=== PATIENT | male | born 1955 | race Caucasian/White ===

== ENCOUNTER 2017-10-03 01:05 | Emergency (ER) | payer OTHER ==
[~2017-10-03] VITALS: Ht 182.9 cm; Wt 129.3 kg
[~2017-10-03 01:05] MED LIST: AMLO10TA1 PO; ASPI81CT89 PO; ATEN100T6 PO; BUS5 PO; ENAL5TAB20 PO; GLU500 PO; GLYB5TAB13 PO
--- NOTE | 2017-10-03 01:05 | NUR ---
BIBA TO ER BED 3
[2017-10-03 01:10] VITALS: BP 153/89
--- NOTE | 2017-10-03 01:17 | NUR ---
Patient being evaluated by physician at bedside.
--- NOTE | 2017-10-03 01:29 | NUR ---
61Y/M BIBA C/O NOSEBLEED. PMH DM, HTN. ALLERGY TO IODINE. PER EMS PT HAS HAD NOSEBLEED SINCE MIDNIGHT AND WAS UNABLE TO STOP IT. EMS REPORTS NO ACTIVE BLEEDING IN ROUTE, NO ACTIVE BLEEDING NOTED ON ARRIVAL TO ED. PT APPEARS TO BE IN NO APPARENT DISTRESS AT THIS TIME. AA&O X4. PT STATES HE WAS READING/WRITTING FOR A FEW HOURS AND STOOD UP SUDDENLY TO GET READY TO GO TO BED WHEN HIS NOSE STARTED TO BLEED. PT STATES HE TAKES A DAILY BABY ASPIRIN. 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 PT HAS BL LOWER LEG EDEMA WITH DISCOLORATION TO LEFT LOWER LEG, SKIN IS INTACT, SKIN IS PURPLE DISCOLORATION. PT IN BED SIDE RAILS UP X1, ER MD NOTIFIED OF PT STATUS, COMFORT NEEDS MET AT THIS TIME.
[2017-10-03] MEDS ORDERED: LORazepam 1 MG TAB PO ONE (01:50)
[2017-10-03 02:31] VITALS: BP 158/80
--- NOTE | 2017-10-03 02:32 | NUR ---
Isael hensley in [facility] - 10/03/17 at 0233 by CHANI PT D/C TO [facility], PT HAS PHONE AND ABLE TO PAY FOR [facility].
--- NOTE | 2017-10-03 02:33 | NUR ---
Patient discharged with v/s stable. Written and verbal after care instructions given and explained. Patient alert, oriented and verbalized understanding of instructions. Ambulatory with steady gait. All questions addressed prior to discharge. ID band removed. Patient advised to follow up with PMD. Rx of AFRIN NO DRIP NASAL SPAY 0.05%, ATIVAN 1MG given. Patient educated on indication of medication including possible reaction and side effects. Opportunity to ask questions provided and answered. PT D/C TO [facility], PT HAS PHONE AND ABLE TO PAY FOR TAXI.
== END 2017-10-03 02:31 | disposition home or self-care (01) ==
LOC: MED 01:05
DX: R04.0 Epistaxis (principal); I10 Essential (primary) hypertension; E11.9 Type 2 diabetes mellitus without complications; Z79.899 Other long term (current) drug therapy; Z79.82 Long term (current) use of aspirin; Z79.84 Long term (current) use of oral hypoglycemic drugs; Z88.8 Allergy status to other drugs, medicaments and biological substances; Z91.041 Radiographic dye allergy status
CPT/HCPCS: 99283

== ENCOUNTER 2020-01-23 09:06 | Inpatient (IN) | payer OTHER ==
[~2020-01-23] VITALS: Ht 185.4 cm; Wt 130.2 kg
[~2020-01-23 09:06] MED LIST changes: +ASPI-1821 PO; -ASPI81CT89 PO; -ENAL5TAB20 PO; +ENAL5TAB34 PO
[2020-01-23 09:12] VITALS: BP 170/79
--- NOTE | 2020-01-23 09:23 | NUR ---
PT AMBULATED TO ER BED 02
--- NOTE | 2020-01-23 09:30 | NUR ---
dr arellano evaluating pt.
[2020-01-23] MEDS ORDERED: VANCOMYCIN 1,000 MG in DEXTROSE 5% 250 ML IV ONE (09:35)
[2020-01-23] MEDS ORDERED: NACL 0.9% 4,000 ML IV ONE (09:35)
--- NOTE | 2020-01-23 09:48 | NUR ---
xray at bedside.
--- NOTE | 2020-01-23 09:48 | NUR ---
labs at bedside.
--- NOTE | 2020-01-23 09:49 | NUR ---
adelina at bedside.
--- NOTE | 2020-01-23 09:50 | NUR ---
c/o chronic wound left lower leg & pain x 3 weeks. BLOOD SUGAR 305 AT THIS TIME.Pt awake ,alert ,afibrile, ambulatory with steady gait. sce ,cbs , noted a prutruding hernia on lower abdomen, left leg positive wound. plus 2 pitting edema. med hx: DM, HTN
[2020-01-23 09:58] LABS: BASOPHILS # (AUTO) 0.1 K/uL (0.00-0.22); BASOPHILS % (AUTO) 0.7 % (0.0-2.0); EOSINOPHILS # (AUTO) 0.2 K/uL (0-0.4); EOSINOPHILS % (AUTO) 2.6 % (0.0-4.0); HEMATOCRIT 44.6 % (36-52); HEMOGLOBIN 14.9 g/dL (12.0-18.0); LYMPHOCYTES % (AUTO) 24.6 % (20.5-51.1); MEAN CORPUSCULAR HEMOGLOBIN 28 pg (27-31); MEAN CORPUSCULAR HGB CONC 33 g/dL (33-37); MEAN CORPUSCULAR VOLUME 84.2 fL (80-94); MONOCYTES # (AUTO) 0.6 K/uL (0.8-1.0); MONOCYTES % (AUTO) 7.5 % (1.7-9.3); NEUTROPHILS # (AUTO) 5.2 K/uL (1.8-7.7); NEUTROPHILS % (AUTO) 64.6 % (42.2-75.2); PLATELET COUNT (AUTO) 254 K/uL (140-450); RED CELL DISTRIBUTION WIDTH 13.8 % (11.6-13.7)
[2020-01-23 10:13] LABS: ALBUMIN 3.4 g/dL (3.4-5.0); ANION GAP 10.2 (8-16); CREATININE 0.8 mg/dL (0.6-1.3); POTASSIUM 4.2 mmol/L (3.5-5.1); TOTAL BILIRUBIN 0.6 mg/dL (0.0-1.0)
[2020-01-23] MEDS ORDERED: INSULIN REGULAR, HUMAN 100 UNIT/ML VIAL IVP ONE (10:15)
--- NOTE | 2020-01-23 10:49 | NUR ---
dr arellano verbal order hold remaining 3 liters of ivf fluids.
[2020-01-23] MEDS ORDERED: MORPHINE SULFATE 4 MG/ML SYR IVP PRN (10:50)
[2020-01-23] MEDS ORDERED: ONDANSETRON 4 MG/2 ML VIAL IVP PRN (10:50)
[2020-01-23] MEDS ORDERED: ACETAMINOPHEN 325 MG TAB PO PRN (10:50)
[2020-01-23] MEDS ORDERED: HYDROcodone/APAP 5/325 MG 1 TAB TAB PO PRN (10:50)
[2020-01-23] MEDS ORDERED: DEXTROSE 50% 50 ML SYR IVP PRN (10:50)
[2020-01-23] MEDS ORDERED: VANCOMYCIN PER PHARMACY MC PRN (10:50)
[2020-01-23] MEDS ORDERED: ALBUTEROL 0.083% 2.5 MG/3 ML NEBU INH PRN (10:50)
[2020-01-23 10:54] LABS: APPEARANCE,URINE CLEAR (CLEAR); BILIRUBIN,URINE NEGATIVE (NEGATIVE); BLOOD, URINE NEGATIVE (NEGATIVE); COLOR,URINE YELLOW (YELLOW); LEUKOCYTE ESTERASE ,URINE NEGATIVE (NEGATIVE); NITRITE, URINE NEGATIVE (NEGATIVE); UGLUCOSE 3+ (NEGATIVE)
--- NOTE | 2020-01-23 11:11 | NUR ---
pt awake on bed ,side rails up no complaint at this time .
--- NOTE | 2020-01-23 11:21 | NUR ---
xray on bedside doin left leg xray.
[2020-01-23 11:23] LABS: RBC,URINE 0-5 /HPF (0-5); WBC,URINE 0-5 /HPF (0-5)
[2020-01-23] MEDS: BLOOD GLUCOSE MONITORING 1 DEV DEV FS SCH ×3 (11:30→20:18)
--- NOTE | 2020-01-23 11:58 | NUR ---
Patient noted to have existing wounds upon arrival to ER. Photos taken of wound and placed in chart. Wound covered with dressing. Physician informed.
--- NOTE | 2020-01-23 12:45 | NUR ---
PATIENT ARRIVE VIA GURNEY, AMBULATED ON STEADY GAIT TO BED. DX LEFT FOOT DM ULCER. PATIENT DENIES PAIN AT THIS TIME. RESPIRATIONS EVEN AND UNLABORED ON ROOM AIR. PT AOX4, UPDATED BOARD. IV SITE INTACT, ASYMPTOMATIC, CURRENTLY INTACT. UPDATED HIM WITH PLAN OF CARE, HE VERBALIZED UNDERSTANDING, MRSA SCREENING DONE. CALL LIGHT WITHIN REACH, WILL CONTINUE TO MONITOR PATIENT.
--- NOTE | 2020-01-23 12:50 | NUR ---
Patient will be admitted to care of dr cartwright. Admited to [facility]. Will go to room 126 B. Belongings list completed. Report to amrita gant.
[2020-01-23 13:00] VITALS: BP 149/59
--- NOTE | 2020-01-23 14:00 | NUR ---
DR MILLS IN TO SEE THE PATIENT. WILL WAIT FOR HIS NEW ORDERS.
[2020-01-23] MEDS ORDERED: cloNIDine 0.1 MG TAB PO PRN (14:10)
[2020-01-23] MEDS: NACL 0.9% 1,000 ML IV SCH (14:25)
[2020-01-23] MEDS: PIPERACILLIN/TAZOBACTAM 3.375 GM in DEXTROSE 5% 50 ML IV SCH ×2 (14:26→20:23)
[2020-01-23 16:00] VITALS: BP 155/80
[2020-01-23] MEDS: VANCOMYCIN 1,000 MG in DEXTROSE 5% 250 ML IV SCH (17:40)
--- NOTE | 2020-01-23 17:40 | NUR ---
DR CROCKER IN TO PUTTING DRESSING ON PATIENT'S LEFT LEG AND FOOT. PATIENT TOLERATED IT. ORDERED MEDICATIONS GIVEN. BLOOD SUGAR 270, COVERAGE GIVEN. PATIENT TOLERATED THEM. NO COMPLAINTS AT THIS TIME. CALL LIGHT WITHIN REACH, WILL CONTINUE TO MONITOR PATIENT.
[2020-01-23] MEDS: INSULIN LISPRO SLIDING SCALE 100 UNITS/ML VIAL SUBQ PRN ×2 (17:46→20:32)
--- NOTE | 2020-01-23 18:55 | NUR ---
PATIENT BACK FROM RADIOLOGY, PT SETTLED BACK IN BED, NO COMPLAINTS AT THIS TIME. WILL ENDORSE TO MANUFACTURING HELPER NURSE.
--- NOTE | 2020-01-23 19:10 | NUR ---
REPORT GIVEN TO LOG BRANDER NURSE AT BEDSIDE FOR CONTINUITY OF CARE. PATIENT IN STABLE CONDITION.
--- NOTE | 2020-01-23 19:10 | NUR ---
RECIEVED PT AAOX4 , NID , BERABLE PAIN . R FOOT WRAPPED BY ROBERT BINDER . IV SITE INTACT AND PATENT . POC DISCUSSED AND VWERBALIZE UNDERSTANDING , WILL CONT. TO MONITOR.
[2020-01-23 20:00] VITALS: BP 150/80
--- NOTE | 2020-01-23 20:07 | NUR ---
RECEIVED PT FROM AM SHIFT. PT IN NO APPARENT RESPIRATORY DISTRESS AT THIS TIME: HR 65, RR 18, CLEAR BREATH SOUNDS, AND SPO2 97% ON ROOM AIR. NO INDICATION FOR HHN PRN TX AT THIS TIME. PT WAS INFORMED TO CALL SUPERVISOR LITHARGE CRANE ENGINEER FOR PRN TX WHEN FEELING SOB. WILL CONTINUE TO MONITOR PT.
[2020-01-23] MEDS ORDERED: PIPERACILLIN/TAZOBACTAM 3.375 GM VIAL IV ONE (20:09)
[2020-01-23] MEDS: busPIRone 5 MG TAB PO SCH (20:23)
[2020-01-23] MEDS: glyBURIDE 5 MG TAB PO SCH (20:23)
--- NOTE | 2020-01-23 23:00 | NUR ---
RESTING ON BED.
[2020-01-24] VITALS: BP 150/70
--- NOTE | 2020-01-24 | NUR ---
NOT IN ACUTE DISTRESS , CALL LIGHT WITHIN REACH.
[2020-01-24] MEDS: NACL 0.9% 1,000 ML IV SCH ×2 (00:09→13:29)
[2020-01-24] MEDS ORDERED: VANCOMYCIN 1,000 MG VIAL ONE (03:41)
[2020-01-24] MEDS: VANCOMYCIN 1,000 MG in DEXTROSE 5% 250 ML IV SCH ×3 (03:50→17:10)
[2020-01-24 04:00] VITALS: BP 110/60
[2020-01-24] MEDS ORDERED: PIPERACILLIN/TAZOBACTAM 3.375 GM VIAL IV ONE (05:05)
[2020-01-24] MEDS: PIPERACILLIN/TAZOBACTAM 3.375 GM in DEXTROSE 5% 50 ML IV SCH ×2 (05:26→13:32)
[2020-01-24] MEDS: BLOOD GLUCOSE MONITORING 1 DEV DEV FS SCH ×3 (05:41→16:42)
--- NOTE | 2020-01-24 06:00 | NUR ---
RESTING ON BED, NO COMPLAIN MADE
[2020-01-24] MEDS: INSULIN LISPRO SLIDING SCALE 100 UNITS/ML VIAL SUBQ PRN ×3 (06:14→17:16)
[2020-01-24 06:27] LABS: BASOPHILS % (AUTO) 0.7 % (0.0-2.0); EOSINOPHILS # (AUTO) 0.3 K/uL (0-0.4); EOSINOPHILS % (AUTO) 4.5 % (0.0-4.0); HEMATOCRIT 42.4 % (36-52); HEMOGLOBIN 14.4 g/dL (12.0-18.0); LYMPHOCYTES # (AUTO) 1.7 K/uL (2.0-11.5); LYMPHOCYTES % (AUTO) 24.3 % (20.5-51.1); MEAN CORPUSCULAR HEMOGLOBIN 28 pg (27-31); MEAN CORPUSCULAR HGB CONC 34 g/dL (33-37); MEAN CORPUSCULAR VOLUME 83.9 fL (80-94); MONOCYTES # (AUTO) 0.6 K/uL (0.8-1.0); MONOCYTES % (AUTO) 8.6 % (1.7-9.3); NEUTROPHILS # (AUTO) 4.4 K/uL (1.8-7.7); NEUTROPHILS % (AUTO) 61.9 % (42.2-75.2); PLATELET COUNT (AUTO) 249 K/uL (140-450); RED BLOOD CELL COUNT(AUTO) 5.06 MIL/uL (4.20-6.10); RED CELL DISTRIBUTION WIDTH 13.4 % (11.6-13.7); WHITE BLOOD COUNT (AUTO) 7.1 K/uL (4.8-10.8)
[2020-01-24 06:54] LABS: MAGNESIUM 1.7 mg/dL (1.8-2.4); PHOSPHORUS 3.1 mg/dL (2.5-4.9)
[2020-01-24 06:58] LABS: ANION GAP 9.1 (8-16); CARBON DIOXIDE 28.8 mmol/L (21-32); CREATININE 0.6 mg/dL (0.6-1.3); POTASSIUM 3.9 mmol/L (3.5-5.1)
[2020-01-24 07:12] LABS: PROTHROMBIN TIME 10.9 secs (10.8-13.4)
--- NOTE | 2020-01-24 07:25 | NUR ---
RECEIVED REPORT FROM ADULT HEALTH CLINICAL NURSE SPECIALIST NURSE AT BEDSIDE FOR CONTINUITY OF CARE. AOX4, PATIENT DENIES PAIN AT THIS TIME. RESPIRATIONS EVEN AND UNLABORED ON ROOM AIR. UPDATED BOARD. IV SITE INTACT, ASYMPTOMATIC, INFUSING IVF WELL. UPDATED HIM WITH PLAN OF CARE, HE VERBALIZED UNDERSTANDING, CALL LIGHT WITHIN REACH, WILL CONTINUE TO MONITOR PATIENT.
[2020-01-24 08:00] VITALS: BP 149/65
[2020-01-24] MEDS: busPIRone 5 MG TAB PO SCH (08:40)
[2020-01-24] MEDS: glyBURIDE 5 MG TAB PO SCH (08:41)
--- NOTE | 2020-01-24 08:41 | NUR ---
ORDERED MEDICATION GIVEN. PATIENT TOLERATED THEM WELL. TENORMIN WITHHELD D/T PT PULSE OF 57. PT HAS NO COMPLAINTS AT THIS TIME. WILL CONTINUE TO MONITOR PATIENT.
--- NOTE | 2020-01-24 08:49 | NUR ---
PATIENT HAS BEEN SCREENED AND CATEGORIZED HIGH NUTRITION RISK. PATIENT WILL BE SEEN WITHIN 1-2 DAYS OF ADMISSION. 01/24/[address]
[2020-01-24] MEDS ORDERED: ENALAPRIL 5 MG TAB PO SCH (09:00)
[2020-01-24] MEDS ORDERED: ASPIRIN 81 MG TAB.CHEW PO SCH (09:00)
[2020-01-24] MEDS ORDERED: amLODIPine 5 MG TAB PO SCH (09:00)
[2020-01-24] MEDS ORDERED: ATENOLOL 50 MG TAB PO SCH (09:00)
[2020-01-24] MEDS ORDERED: ATEN100T6 PO (12:40)
[2020-01-24] MEDS ORDERED: ENAL5TAB34 PO (12:40)
[2020-01-24] MEDS ORDERED: METF1000 PO (12:40)
[2020-01-24] MEDS ORDERED: AMLO10TA1 PO (12:40)
[2020-01-24] MEDS ORDERED: GLYB5TAB13 PO (12:40)
[2020-01-24] MEDS ORDERED: CLIN300C2 PO (12:41)
--- NOTE | 2020-01-24 14:40 | NUR ---
01/24/20 RD INITIAL ASSESSMENT COMPLETED PLEASE REFER TO NUTRITION ASSESSMENT UNDER CARE ACTIVITY FOR ESTIMATED NUTRITIONAL NEEDS. 1. CONTINUE CCHO DIET TOLERATED 2. RECOMMED AWILDA BID 3. RD PROVIDED NUTRITION RECOMMENDATIONS FOR CONSITENT CHO DIET. 4. RD TO FOLLOW-UP 3-5 DAYS, MODERATE RISK NALLELY ODELL, RD
[2020-01-24 16:10] VITALS: BP 158/69
--- NOTE | 2020-01-24 17:05 | NUR ---
CALLED PHARMACY TO INQUIRE ABOUT LAST VANCO DOSE, VANCO TROUGH TO BE DONE, INFORM PHARMACIST OF PATIENT'S DISCHARGE, PER PHARMACIST, PATIENT CAN HAVE LAST DOSE AND BE DISCHARGE HOME, HE WILL CANCEL VANCO TROUGH.
--- NOTE | 2020-01-24 17:16 | NUR ---
INSULIN COVERAGE GIVEN FOR BLOOD SUGAR LEVEL. ORDERED MEDICATION GIVEN. PATIENT TOLERATED THEM WELL. PT HAS NO COMPLAINTS AT THIS TIME. IS AWARE OF DISCHARGE PLAN. WILL CONTINUE TO MONITOR PATIENT.
--- NOTE | 2020-01-24 18:12 | NUR ---
DISCHARGE INSTRUCTION AND EDUCATION GIVEN TO PATIENT. HE VERBALIZED UNDERSTANDING ABOUT PCP FOLLOW UP, WOUND CARE, TAKING ALL PRESCRIBED MEDICATIONS ORDERED, AND EARLY S/S OF INFECTION. PATIENT WILL BE DISCHARGE ONCE IVPB ANTIBIOTICS FINISHES. Addendum: 01/24/20 at 1953 by Daniel Daily RN PT HAS APPOINTMENT WITH PCP, WILL ALSO BE INQUIRING ABOUT GENERAL SURGEON.
--- NOTE | 2020-01-24 18:50 | NUR ---
IVPB ANTIBIOTICS FINISHED, IV REMOVED, IV CANNULA INTACT, MINIMAL BLEEDING NOTED. ID BANDS CUT. PATIENT WILL NOW CHANGE TO GET READY TO BE DISCHARGED HOME. FRIEND ON WAY TO PICK HIM UP.
--- NOTE | 2020-01-24 18:55 | NUR ---
PATIENT DECLINED WOUND PICTURE BECAUSE HE WANTED TO CHANGE TO GO HOME. PATIENT REITERATED REFUSAL OF PNA AND FLU VACCINE, PATIENT WORRIED ABOUT COST, BUT WILL FOLLOW UP WITH HIS PCP, WITH WHOM HE HAS APPOINTMENT WITH IN 3 DAYS. WILL CONTINUE TO MONITOR PATIENT.
--- NOTE | 2020-01-24 19:15 | NUR ---
PATIENT WHEELED OFF VIA WHEELCHAIR WITH CONCRETE [employer]IPE PLANT SUPERVISOR. PATIENT TOOK ALL HIS BELONGINGS WITH HIM. PATIENT IN STABLE CONDITION, DISCHARGED HOME.
== END 2020-01-24 20:03 | disposition home or self-care (01) | DRG 383 ==
LOC: MED 09:06 → MMU 10:49
PROVIDERS: ADMIT Internal Medicine Pulmonary Disease; ATTEND Internal Medicine Pulmonary Disease
DX: L03.116 Cellulitis of left lower limb (principal); E11.621 Type 2 diabetes mellitus with foot ulcer; I11.9 Hypertensive heart disease without heart failure; L97.929 Non-pressure chronic ulcer of unspecified part of left lower leg with unspecified severity; K42.9 Umbilical hernia without obstruction or gangrene; E78.5 Hyperlipidemia, unspecified; E66.9 Obesity, unspecified; Z68.37 Body mass index [BMI] 37.0-37.9, adult; Z87.891 Personal history of nicotine dependence; Z91.041 Radiographic dye allergy status; Z79.84 Long term (current) use of oral hypoglycemic drugs; Z79.82 Long term (current) use of aspirin; Z79.899 Other long term (current) drug therapy
CPT/HCPCS: 36415; 71045; 73630; 80048; 80053; 81001; 82948; 83036; 83605; 83735; 84100; 85025; 85610; 85730; 87040; 87081; 87086; 93005; 93971; 96365; 96366; 96375; 99285; J1815; J2543; J3370; J7030; J7060; Q0092

== ENCOUNTER 2020-02-12 01:08 | Emergency (ER) | payer OTHER ==
[~2020-02-12] VITALS: Ht 182.9 cm; Wt 120.2 kg
[~2020-02-12 01:08] MED LIST changes: +CLIN300C2 PO; +METF1000 PO
[2020-02-12 01:15] VITALS: BP 172/81
--- NOTE | 2020-02-12 01:18 | NUR ---
PT AMBULATED TO ER BED 03
--- NOTE | 2020-02-12 01:25 | NUR ---
64 Y/O MALE C/O LEFT SHOULDER AND ARM PAIN X 1999 LAST NIGHT. RATES PAIN 10/10 AND DESCRIBES IT BURNING SENSATION. DENIES ANY TRUAMA OR INJURY TO THE EXTREMETIES. CAP REFILL < 3 ON RIGHT HAND AND > 3 ON LEFT HAND. LEFT HAND AND ARM ARE PALE IN COLOR AND COOL TO TOUCH AND MILD WEAKNESS, AND NO RADIAL PULSES. USED DOPPLER TO FIND PULSE, STILL NO PULSE PRESENT. LEFT FOOT SHOWS DRY FLANKY SKIN WITH DRY GREEN DRAINAGE AND REDNESS AND SWELLING PRESENT AROUND LOWER LEG. HEART SOUNDS ARE REGULARLY IRREGULAR. A&O X4. STEADY GAIT. ALLERGIES: IODINE, XR DYE. PMH: DM.
--- NOTE | 2020-02-12 01:26 | NUR ---
NO OBVIOUS DEFORMITY NOTED ON BUE AND BLE.
[2020-02-12] MEDS ORDERED: KETOROLAC 60 MG/2 ML VIAL IM ONE (01:30)
--- NOTE | 2020-02-12 01:30 | NUR ---
LINDA KWAW AT BEDSIDE TO EVAL PT.
[2020-02-12] MEDS ORDERED: VANCOMYCIN 1,000 MG in DEXTROSE 5% 250 ML IV ONE (01:35)
[2020-02-12] MEDS ORDERED: cefTRIAXone 2,000 MG in DEXTROSE 5% 100 ML IV ONE (01:35)
[2020-02-12] MEDS ORDERED: KETOROLAC 30 MG/ML VIAL IVP ONE (01:35)
[2020-02-12] MEDS ORDERED: NACL 0.9% 1,000 ML IV ONE (01:35)
[2020-02-12 01:47] LABS: BASOPHILS % (AUTO) 0.6 % (0.0-2.0); EOSINOPHILS # (AUTO) 0.3 K/uL (0-0.4); EOSINOPHILS % (AUTO) 4.1 % (0.0-4.0); HEMATOCRIT 41.9 % (36-52); HEMOGLOBIN 14.1 g/dL (12.0-18.0); LYMPHOCYTES # (AUTO) 1.1 K/uL (2.0-11.5); LYMPHOCYTES % (AUTO) 14.6 % (20.5-51.1); MEAN CORPUSCULAR HEMOGLOBIN 28 pg (27-31); MEAN CORPUSCULAR HGB CONC 34 g/dL (33-37); MEAN CORPUSCULAR VOLUME 83.5 fL (80-94); MONOCYTES # (AUTO) 0.8 K/uL (0.8-1.0); NEUTROPHILS # (AUTO) 5.3 K/uL (1.8-7.7); NEUTROPHILS % (AUTO) 70.7 % (42.2-75.2); PLATELET COUNT (AUTO) 195 K/uL (140-450); RED BLOOD CELL COUNT(AUTO) 5.02 MIL/uL (4.20-6.10); RED CELL DISTRIBUTION WIDTH 14.4 % (11.6-13.7); WHITE BLOOD COUNT (AUTO) 7.6 K/uL (4.8-10.8)
[2020-02-12] MEDS ORDERED: cefTRIAXone 2,000 MG VIAL ONE (01:53)
[2020-02-12 02:01] LABS: ALBUMIN 3.3 g/dL (3.4-5.0); ANION GAP 13.7 (8-16); CARBON DIOXIDE 26.1 mmol/L (21-32); TOTAL BILIRUBIN 0.7 mg/dL (0.0-1.0)
[2020-02-12 02:03] LABS: POTASSIUM 2.8 mmol/L (3.5-5.1)
[2020-02-12] MEDS ORDERED: POTASSIUM CHL 10 MEQ/D5-1/2NS 1,000 ML IV ONE (02:15)
--- NOTE | 2020-02-12 02:26 | NUR ---
US AT BEDSIDE.
--- NOTE | 2020-02-12 03:04 | NUR ---
PT SPO2 WAS 88-90% WHEN SLEEPING, PUT HIM ON 2L NC AND SPO2 NOW 97%.
[2020-02-12] MEDS ORDERED: VANCOMYCIN 1,000 MG VIAL ONE (03:28)
--- NOTE | 2020-02-12 04:00 | NUR ---
pt is sleeping and laying comfortably. no distress noted. equal chest rise and fall.
--- NOTE | 2020-02-12 04:10 | NUR ---
US RESULTS CAME AND DR. PAULSON AWARE OF RESULTS.
[2020-02-12] MEDS ORDERED: METF850T PO (04:23)
--- NOTE | 2020-02-12 04:37 | NUR ---
NEW ORDERS PLACED. ORDER IS TO ADMIN ELIQUIS 2.5MG PO.
[2020-02-12] MEDS ORDERED: APIXABAN 2.5 MG TAB PO SCH (04:38)
--- NOTE | 2020-02-12 05:00 | NUR ---
pt left hand color appearance is blueish purple and cap refill < 3. salvador arellano aware. Addendum: 02/12/20 at 0624 by [facility] cap refill > 3.
--- NOTE | 2020-02-12 05:10 | NUR ---
salvador arellano is aware that we dont have a vascular surgon and still wants pt to be admitted to this facility.
--- NOTE | 2020-02-12 06:00 | NUR ---
pt still waiting on admitting dr and admit orders.
--- NOTE | 2020-02-12 06:22 | NUR ---
Isael hensley in [facility] - 02/12/20 at 0624 by [facility] pt getting transferred to [place] for higher level of care.
[2020-02-12] MEDS ORDERED: HEPARIN PER PHARMACY MC STA (06:52)
[2020-02-12] MEDS ORDERED: hePARIN / DEXT 5% PREMIX 250 ML IV ONE (06:55)
--- NOTE | 2020-02-12 07:06 | NUR ---
NEW ORDERS: ADMIN IVP HEPARIN 5000UNIT AND [id number] IN D5 IN 250ML BAG. RATE STARTED AT 1000UNIT/HR.
--- NOTE | 2020-02-12 07:20 | NUR ---
GAVE REPORT TO BULMARO SNOWDEN FROM [place]. ALL QUESTIONS AND CONCERNS ANSWERED AT THIS TIME.
[2020-02-12 07:25] VITALS: BP 123/59
--- NOTE | 2020-02-12 07:25 | NUR ---
Patient to be transferred to [place]. Is being transferred due to HIGHER LEVEL OF CARE. Receiving facility has accepting physician and available space. ER physician has signed transfer form. Patient or responsible democrat has agreed to transfer and signed form. Patient belongings inventoried and will be sent with patient. Copy of nursing notes, lab reports, EKG, Physicians Orders and X-rays to be sent with patient. Report called to BULMARO SNOWDEN at receiving facility. [facility] ambulance service has been called for transfer. ETA is 20 MIN.
--- NOTE | 2020-02-14 16:12 | NUR ---
ER MD DR EARLINE RIDER AEROBIC CULTURE REPORT-NO ORDER GIVEN.
== END 2020-02-12 07:36 | disposition short-term general hospital (02) ==
LOC: MED 01:08
DX: I74.9 Embolism and thrombosis of unspecified artery (principal); H66.91 Otitis media, unspecified, right ear; Z88.2 Allergy status to sulfonamides; E11.9 Type 2 diabetes mellitus without complications; I10 Essential (primary) hypertension
CPT/HCPCS: 36415; 71045; 80053; 82948; 84484; 85025; 87040; 87070; 87186; 93005; 93922; 93930; 93971; 96365; 96366; 96368; 96375; 99291; J0696; J1644; J1885; J3370; J7030; Q0092

== ENCOUNTER 2021-02-22 11:26 | Emergency (ER) | payer OTHER ==
[~2021-02-22] VITALS: Ht 182.9 cm; Wt 127.0 kg
[~2021-02-22 11:26] MED LIST changes: -CLIN300C2 PO; -GLU500 PO; -METF1000 PO; +METF850T PO
[2021-02-22 11:31] VITALS: BP 132/82
[2021-02-22] MEDS ORDERED: KETOROLAC 15 MG/ML VIAL IVP ONE (11:35)
[2021-02-22] MEDS ORDERED: MORPHINE SULFATE 4 MG/ML SYR IVP ONE (11:35)
[2021-02-22] MEDS ORDERED: MORPHINE SULFATE 4 MG/ML SYR ONE (11:36)
[2021-02-22] MEDS ORDERED: KETOROLAC 15 MG/ML VIAL ONE (11:36)
[2021-02-22 11:49] LABS: BASOPHILS % (AUTO) 0.3 % (0.0-2.0); HEMATOCRIT 37.3 % (36-52); HEMOGLOBIN 12.7 g/dL (12.0-18.0); LYMPHOCYTES # (AUTO) 0.8 K/uL (2.0-11.5); LYMPHOCYTES % (AUTO) 7.9 % (20.5-51.1); MEAN CORPUSCULAR HEMOGLOBIN 28 pg (27-31); MEAN CORPUSCULAR HGB CONC 34 g/dL (33-37); MEAN CORPUSCULAR VOLUME 80.7 fL (80-94); MONOCYTES # (AUTO) 0.6 K/uL (0.8-1.0); MONOCYTES % (AUTO) 5.4 % (1.7-9.3); NEUTROPHILS # (AUTO) 8.8 K/uL (1.8-7.7); NEUTROPHILS % (AUTO) 86.4 % (42.2-75.2); PLATELET COUNT (AUTO) 227 K/uL (140-450); RED BLOOD CELL COUNT(AUTO) 4.62 MIL/uL (4.20-6.10); WHITE BLOOD COUNT (AUTO) 10.2 K/uL (4.8-10.8)
[2021-02-22 11:59] LABS: ANION GAP 9.9 (8-16); CARBON DIOXIDE 27.6 mmol/L (21-32); CREATININE 1.1 mg/dL (0.6-1.3); POTASSIUM 3.5 mmol/L (3.5-5.1)
[2021-02-22 12:05] VITALS: BP 157/86
[2021-02-23] MEDS ORDERED: APIX2.5 PO (13:18)
== END 2021-02-22 14:47 | disposition home or self-care (01) ==
LOC: MED 11:26
DX: M54.9 Dorsalgia, unspecified (principal); E11.9 Type 2 diabetes mellitus without complications; I10 Essential (primary) hypertension; I49.3 Ventricular premature depolarization; Z79.84 Long term (current) use of oral hypoglycemic drugs; Z79.899 Other long term (current) drug therapy; Z79.82 Long term (current) use of aspirin; Z88.8 Allergy status to other drugs, medicaments and biological substances
CPT/HCPCS: 36415; 80048; 85025; 96374; 96375; 99284; J1885; J2270

== ENCOUNTER 2021-07-26 21:59 | Emergency (ER) | payer OTHER, SELFPAY ==
[~2021-07-26] VITALS: Ht 180.3 cm; Wt 127.0 kg
[~2021-07-26 21:59] MED LIST changes: -AMLO10TA1 PO; +AMOX1TAB8 PO; +APIX2.5 PO; -ATEN100T6 PO; +ATOR20TA40 PO; -ENAL5TAB34 PO; +FURO-570 PO; -GLYB5TAB13 PO; +LANTUS SUBQ; +METO25TA PO; +VANC1FRO IV; +[UNRECOGNIZED DRUG - CODE] PO
[2021-07-26 22:13] VITALS: BP 138/62
--- NOTE | 2021-07-27 10:00 | NUR ---
GO GO TRANSPORTATION HERE TO [facility] HELPER PATIENT.
--- NOTE | 2021-07-27 10:05 | NUR ---
Patient discharged with v/s stable. Written and verbal after care instructions given and explained. Patient alert, oriented and verbalized understanding of instructions. Ambulance Transport with to snf. All questions addressed prior to discharge. ID band removed. Patient advised to follow up with PMD. Rx of NONE given. Patient educated on indication of medication including possible reaction and side effects. Opportunity to ask questions provided and answered.
[2021-07-27 10:40] VITALS: BP 132/60
--- NOTE | 2021-07-27 10:41 | NUR ---
NO NURSING CARE RENDERED. BREAKFAST GIVEN. REPORT GIVEN TO BULMARO WILDE
== END 2021-07-27 10:05 ==
LOC: MED 21:59
DX: F43.20 Adjustment disorder, unspecified (principal); I11.0 Hypertensive heart disease with heart failure; I50.9 Heart failure, unspecified; J44.9 Chronic obstructive pulmonary disease, unspecified; E11.9 Type 2 diabetes mellitus without complications; Z79.2 Long term (current) use of antibiotics; Z79.4 Long term (current) use of insulin; Z79.899 Other long term (current) drug therapy; Z88.8 Allergy status to other drugs, medicaments and biological substances
CPT/HCPCS: 99283

== ENCOUNTER 2023-10-12 13:10 | Emergency (ER) | payer OTHER ==
[~2023-10-12] VITALS: Ht 188 cm; Wt 81.6 kg
[~2023-10-12 13:10] MED LIST changes: +METF-713 PO; -METF850T PO
[2023-10-12 13:12] VITALS: BP 132/78; PULSE 79; RESP 20; TEMP 98; O2SAT 98
[2023-10-12 14:04] LABS: BASOPHILS # (AUTO) 0.1 K/uL (0.00-0.22); BASOPHILS % (AUTO) 1.1 % (0.0-2.0); EOSINOPHILS # (AUTO) 0.4 K/uL (0-0.4); EOSINOPHILS % (AUTO) 5.1 % (0.0-4.0); HEMATOCRIT 43.2 % (36-52); HEMOGLOBIN 14.1 g/dL (12.0-18.0); LYMPHOCYTES # (AUTO) 2.6 K/uL (2.0-11.5); LYMPHOCYTES % (AUTO) 30.6 % (20.5-51.1); MEAN CORPUSCULAR HEMOGLOBIN 28 pg (27-31); MEAN CORPUSCULAR HGB CONC 33 g/dL (33-37); MEAN CORPUSCULAR VOLUME 84.1 fL (80-94); MONOCYTES # (AUTO) 0.7 K/uL (0.8-1.0); MONOCYTES % (AUTO) 8.3 % (1.7-9.3); NEUTROPHILS # (AUTO) 4.7 K/uL (1.8-7.7); NEUTROPHILS % (AUTO) 54.9 % (42.2-75.2); PLATELET COUNT (AUTO) 278 K/uL (140-450); RED BLOOD CELL COUNT(AUTO) 5.13 MIL/uL (4.20-6.10); RED CELL DISTRIBUTION WIDTH 16.1 % (11.6-13.7); WHITE BLOOD COUNT (AUTO) 8.5 K/uL (4.8-10.8)
[2023-10-12 14:21] LABS: ALBUMIN 3.2 g/dL (3.4-5.0); ANION GAP 11.9 (8-16); CALCIUM 8.9 mg/dL (8.5-10.1); CARBON DIOXIDE 29.5 mmol/L (21-32); CREATININE 0.7 mg/dL (0.6-1.3); POTASSIUM 4.4 mmol/L (3.5-5.1); TOTAL BILIRUBIN 0.6 mg/dL (0.0-1.0); TOTAL PROTEIN, SERUM 7.5 g/dL (6.4-8.2)
[2023-10-12 14:23] LABS: LIPASE 38 U/L (16-77)
[2023-10-12 15:52] VITALS: O2SAT 98
[2023-10-12 20:13] VITALS: O2SAT 99
[2023-10-13 00:03] LABS: MAGNESIUM 1.7 mg/dL (1.8-2.4); PHOSPHORUS 4.1 mg/dL (2.5-4.9)
[2023-10-13] MEDS ORDERED: MAG SULF 2000 MG/WATER PREMIX 50 ML IV ONE (00:10)
[2023-10-13 01:00] VITALS: O2SAT 97
[2023-10-13 05:42] VITALS: O2SAT 99
[2023-10-13 07:30] VITALS: O2SAT 99
[2023-10-13 10:05] VITALS: BP 119/75; PULSE 99; RESP 16; TEMP 98; O2SAT 99
== END 2023-10-13 10:05 | disposition home or self-care (01) ==
LOC: MED 13:10
DX: K62.5 Hemorrhage of anus and rectum (principal); I11.0 Hypertensive heart disease with heart failure; I50.9 Heart failure, unspecified; E11.9 Type 2 diabetes mellitus without complications; I25.2 Old myocardial infarction; J44.9 Chronic obstructive pulmonary disease, unspecified; E78.5 Hyperlipidemia, unspecified; I48.91 Unspecified atrial fibrillation; Z79.899 Other long term (current) drug therapy; Z79.01 Long term (current) use of anticoagulants; Z79.82 Long term (current) use of aspirin; Z79.4 Long term (current) use of insulin; Z88.8 Allergy status to other drugs, medicaments and biological substances
CPT/HCPCS: 36415; 71045; 80053; 83690; 83735; 83880; 84100; 84484; 85025; 86886; 86900; 86901; 93005; 96365; 96366; 99285; J3475; Q0092